=== PATIENT | male | born 1965 | race Caucasian/White ===

== ENCOUNTER 2017-12-27 14:12 | Emergency (ER) | payer OTHER ==
[~2017-12-27] VITALS: Ht 185.4 cm; Wt 129.3 kg
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
[2017-12-27] MEDS ORDERED: DIPHTH,PERTUSS(ACELL),TET TOX 0.5 ML DISP.SYRIN. VAX IM ONE (14:30)
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
[2017-12-27 15:08] VITALS: BP 156/91
[2017-12-27] MEDS ORDERED: IBUP800T19 PO (15:08)
[2017-12-27] MEDS ORDERED: KETOROLAC 60 MG/2 ML VIAL. IM ONE (15:15)
== END 2017-12-27 15:14 | disposition home or self-care (01) ==
LOC: ER 14:12
DX: S01.01XA Laceration without foreign body of scalp, initial encounter (principal); R51 Headache; F41.9 Anxiety disorder, unspecified; I10 Essential (primary) hypertension; Y08.89XA Assault by other specified means, initial encounter; Y93.89 Activity, other specified; Y99.0 Civilian activity done for income or pay; Y92.89 Other specified places as the place of occurrence of the external cause
CPT/HCPCS: 70450; 72125; 90471; 90715; 96372; 99284; J1885